=== PATIENT | female | born 2000 | race Caucasian/White ===

== ENCOUNTER 2019-04-23 14:35 | Emergency (ER) | payer BC ==
[2019-04-23 15:33] VITALS: BP 113/64
--- NOTE | 2019-04-23 17:05 | UC ---
UC General HPI - HPI Summary HPI Summary: 18 yo with epigastric burning x 2 weeks, which began after a course of augmentin which she took for sinusitis. She is a healthy non-smoker, without excess caffeine or alcohol use. Has been using famotidine without relief of discomfort, which is worsened by eating. Long hx of chronic constipation. - History of Current Complaint Chief Complaint: UCGeneralIllness Stated Complaint: CHEST DISCOMFORT Time Seen by Provider: 04/23/19 17:04 Hx Obtained From: Patient Onset/Duration: Gradual Onset, Lasting Weeks - 2 Timing: Constant Onset Severity: Worse Since: - today Current Severity: Moderate Pain Intensity: 8 Associated Signs & Symptoms: Positive: Nausea. Negative: Vomiting - Allergy/Home Medications Allergies/Adverse Reactions: Allergies Allergy/AdvReac Type Severity Reaction Status Date / Time amoxicillin AdvReac Rash Verified 04/23/19 15:26 Home Medications: Home Medications Famotidine TAB* [Pepcid 20 MG TAB*] 20 mg PO BID 04/23/19 [History Confirmed ] PMH/Surg Hx/FS Hx/Imm Hx Previously Healthy: Yes GI/ History: Other - chronic constipation x 2 years, has had colonscopy in the past. - Surgical History Surgical History: Yes Surgery Procedure, Year, and Place: wisdom teeth - Family History Known Family History: Positive: Other - father has elevated cholesterol - Social History Occupation: Student Lives: Dormitory/Roommates Alcohol Use: Occasionally Substance Use Type: None Smoking Status (MU): Never Smoked Tobacco Review of Systems All Other Systems Reviewed And Are Negative: Yes Constitutional: Positive: Negative Cardiovascular: Negative: Palpitations, Chest Pain Gastrointestinal: Positive: Abdominal Pain, Nausea Musculoskeletal: Positive: Negative Neurological: Positive: Negative Psychological: Positive: Anxious Is Patient Immunocompromised?: No Physical Exam Triage Information Reviewed: Yes Appearance: Well-Appearing, No Pain Distress, Thin Vital Signs: Initial Vital Signs Temp 98.8 F 04/23/19 15:26 Pulse 91 04/23/19 15:26 Resp 14 04/23/19 15:26 BP 113/64 04/23/19 15:26 Pulse Ox 100 04/23/19 15:26 ENT: Positive: Pharynx normal, TMs normal Respiratory: Positive: Lungs clear, Normal breath sounds Cardiovascular: Positive: RRR, No Murmur Abdomen Description: Positive: No Organomegaly, Soft. Negative: Splenomegaly, Other: - mild epigastric tenderness Neurological: Positive: Alert, Muscle Tone Normal, Fatigued Course/Dx - Course Course Of Treatment: Stop famotidine and try prilosec x 1 month - Diagnoses Provider Diagnosis: Reflux esophagitis Discharge ED - Sign-Out/Discharge Documenting (check all that apply): Patient Departure All imaging exams completed and their final reports reviewed: No Studies - Discharge Plan Condition: Good Disposition: HOME Prescriptions: Omeprazole 40 mg PO DAILY #30 cap Patient Education Materials: Gastroesophageal Reflux Disease (ED) Referrals: No Primary Care Phys,NOPCP [Primary Care Provider] - Additional Instructions: STOP use of Pepcid, and change to omperazole 40mg, taking the dose on an empty stomach 20 to 30 minute before eating. Symptoms should resolve within 2 to 3 weeks, with some relief after 3 or 4 days of use. Continue use of supplements for chronic constipation. Follow up if you are having persistent symptoms after 4 weeks. - Billing Disposition and Condition Condition: GOOD Disposition: Home
== END 2019-04-23 17:49 | disposition home or self-care (01) ==
LOC: UCCORT 14:35
DX: K21.0 Gastro-esophageal reflux disease with esophagitis (principal); Z88.0 Allergy status to penicillin
CPT/HCPCS: 99202; G0463